=== PATIENT | female | born 2005 | race Caucasian/White ===

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

== ENCOUNTER 2025-08-04 19:04 | Emergency (ER) | payer BC, SELFPAY ==
[2025-08-04 19:06] VITALS: BP 127/89
[2025-08-04 22:18] VITALS: BMI 33.4
[2025-08-04 22:31] VITALS: BP 109/70
[2025-08-04 22:42] LABS: Hematocrit 38.9 % (37.0-47.0); Hemoglobin 13.4 g/dL (12.0-16.0); Mean Corp Hgb Conc. 34.4 g/dL (33.0-37.0); Mean Corpuscular Volume 80.7 fL (81.0-99.0); Nucleated Red Blood Cells % 0 %; Platelet Count 334 10^3/uL (130-400); Red Cell Dist. Width 12.6 % (11.5-14.5)
[2025-08-04] MEDS: BENADRYL 25 MG IV (22:50)
[2025-08-04] MEDS: DECADRON 10 MG IV (22:50)
[2025-08-04] MEDS: REGLAN 10 MG IV (22:50)
[2025-08-04] MEDS: TORADOL 15 MG IV (22:50)
[2025-08-04] MEDS: NSS 1000 IV (22:53)
[2025-08-04 22:54] LABS: HCG, Serum Qualitative Screen Negative
[2025-08-04 22:58] LABS: ALT (SGPT) 13 U/L (0-35); AST (SGOT) 19 U/L (14-36); Albumin 4.6 g/dl (3.5-5.0); Alkaline Phosphatase 72 U/L (38-126); Blood Urea Nitrogen 13 mg/dl (7-17); Calcium 9.6 mg/dl (8.4-10.2); Carbon Dioxide 26 mmol/L (22-30); Chloride 106 mmol/L (98-107); Estimated Creatinine Clearance > 125 ml/min; Glucose 96 mg/dl (70-99); Potassium 4.0 mmol/L (3.5-5.1); Sodium 140 mmol/L (135-145); Total Protein 7.9 g/dl (6.3-8.2); eGFR > 60.00
[2025-08-04 23:08] VITALS: BP 123/78
--- NOTE | 2025-08-04 23:57 | ED.GENMED ---
History of Present Illness
General
Chief Complaint: Headache
Source: patient and significant other
Exam Limitations: none
Time Seen by Provider: 08/04/25 22:08
Nursing documentation reviewed up to this point in time: agreed with
History of Present Illness
History of Present Illness:
Note:
CHIEF COMPLAINT(S)
Severe headache described as a migraine with associated nausea, eye pain, numbness in arms and face, and occasional dizziness.
HISTORY OF PRESENT ILLNESS
The patient is a 19-year-old female who presents with a severe headache that she describes as a migraine. The headache initially worsened but has improved slightly. She reports feeling very nauseous and experiencing significant pain in her eyes. The
patient also experienced numbness in her arms and face, which has since resolved. She expresses ongoing distress due to the migraines severity.
The patient states that she did not have migraines until last year when they began occurring during the winter. Although the frequency decreased around September, she had several intense episodes, which she initially suspected might be related to a
medication she was taking. She describes a common prodrome with visual disturbances, including blurry vision and spotting in her eyes, preceding the pain.
Today, the headache onset was around 5:45 PM. The patient took Tylenol immediately, and her symptoms improved, leading her to seek medical care due to extreme dizziness and feeling 'out of body.'
CHRONIC MEDICAL CONDITIONS SIGNIFICANTLY AFFECTING CARE
Migraine headaches, suspected association with past medication.
REVIEW OF SYSTEMS
- Head: Reports severe headache with an accompanying sensation of pressure.
- Eyes: Pain and blurring vision preceding headache onset.
- Neurology: Describes dizziness and transient numbness in arms and face, which has resolved.
- Gastrointestinal: Reports significant nausea.
PHYSICAL EXAM
General: Alert, no acute distress.
Skin: Warm, dry.
Head: Normocephalic, atraumatic.
Neck: Supple, trachea midline.
Eye, Ears, Nose, Mouth, and Throat: Oral mucosa moist.
Cardiovascular: Normal peripheral perfusion, no edema.
Respiratory: Respirations are non-labored.
Gastrointestinal: Abdomen nondistended.
Back: Normal range of motion, normal alignment.
Musculoskeletal: Normal range of motion, normal strength.
Neurological: Alert and oriented to person, place, time, and situation, no focal neurological deficit observed.
Psychiatric: Cooperative, appropriate mood & affect.
PROBLEM LIST
Acute: Migraine headache with nausea, visual disturbances, and transient neurological symptoms.
PLAN
- Administer intravenous fluids for hydration.
- Administer medication cocktail including diphenhydramine, toradol, decadron, and reglan for management of migraine symptoms.
- Monitor the patient�s response to treatment.
- Discharge options: The patient may choose to leave once the fluid administration is complete or stay for observation depending on symptom resolution and personal preference.
- Advise patient to rest, either at home or in the facility, due to the sedative effects of the medication.
DIFFERENTIAL DIAGNOSIS
The differential diagnosis includes, in no particular order and is not limited to:
1. Migraine
2. Tension-type headache
3. Cluster headache
4. Medication overuse headache
5. Cervicogenic headache
6. Sinusitis
7. Intracranial hypertension
8. Dehydration headache
9. Ocular strain
10. Infection-related headache (e.g., viral or bacterial)
Disposition:
SUMMARY OF ENCOUNTER
The patient, a 19-year-old female, presented to the emergency department with a severe migraine headache, accompanied by symptoms including nausea, eye pain, and visual disturbances. She had taken acetaminophen (Tylenol) at home with some
improvement in her symptoms. The patient has a history of migraines, which she reported as more severe in past episodes. In the emergency department, she was evaluated, and her symptoms mostly resolved following treatment.
DISPOSITION
The patient was discharged with a plan to follow up with her primary care provider.
ASSESSMENT
Acute migraine headache with associated symptoms of nausea and visual disturbances.
EMERGENCY TREATMENTS ADMINISTERED
The patient received acetaminophen (Tylenol) at home for pain relief before presentation.
PLAN
The patient is advised to continue care under her primary care provider and to manage migraine symptoms using prescribed medications as directed by her healthcare provider.
MEDICAL DECISION MAKING
-Complexity of Data Reviewed:
Chronic conditions affecting care: Migraine headaches.
DIAGNOSIS
Migraine, unspecified, G43.909.
Past History
Past History
ED Past Medical History: Asthma, Psychiatric (Anxiety) and Other (Plaque psoriasis, Migraines, )
ED Past Surgical History: None
Social History
Tobacco: Non-smoker
Alcohol: None
Drug: None
Personal: Single
Living: with roommate ([employer])
Employment: Student
Phy Exam
Physical Exam
Physical Exam:
.
Course
Orders/Labs/Results
Orders:
Orders
08/04/25 22:31
Complete Blood Count/With Diff Urgent
Comprehensive Metabolic Panel Urgent
HCG, Serum Qualitative Screen Urgent
Comment: ADD ON
08/04/25 22:43
Add On- LAB Urgent
Tests Added?: HCG, qual
0.9% Sodium Chloride 1000 ml [Nss] 1,000 ml IV BOLUS
Dexamethasone Sod Phosphate [Decadron] 10 mg IV NOW STA
Ketorolac [Toradol] 15 mg IV NOW STA
Metoclopramide [Reglan] 10 mg IV NOW STA
08/04/25 22:45
Diphenhydramine [Benadryl] 25 mg IV NOW STA
Abnormal Lab Results
08/04/25
22:31
MCV 80.7 L fL
(81.0-99.0)
08/04/25 22:31
08/04/25 22:31
Vital Signs
Initial and Last Documented VS:
Initial Vital Signs
Temp Pulse Resp BP Pulse Ox
97.8 F 90 16 127/89 98
08/04/25 19:06 08/04/25 19:06 08/04/25 19:06 08/04/25 19:06 08/04/25 19:06
Last Documented Vital Signs
Temp Pulse Resp BP Pulse Ox
97.8 F 80 12 109/73 98
08/04/25 19:06 08/05/25 00:00 08/05/25 00:00 08/05/25 00:00 08/04/25 23:59
*Pulse Oximetry
SaO2: 98
Oxygen Mode of Delivery: Room air
Patient hypoxic: no
*Critical Care Note
Total Time (30-74mins, 75-104mins- exclusive of procedures): Not Applicable
ED Attending Note
-
Portions of this chart may have been created with voice recognition software.� Occasional wrong word or��sound alike� substitutions may have occurred due to the inherent limitations of voice recognition software.
Discharge Plan
Departure
Patient Disposition: Home (Routine Discharge)
Date of Disposition: 08/04/25
Time of Disposition: 23:58
Patient with high blood pressure during this ER visit?: Yes
Discharge Problem:
Headache, migraine
Instructions: Migraines (DC), Headache, Adult (DC), BLOOD PRESSURE
Prescriptions:
No Action
venlafaxine 75 mg Tablet
75 mg PO DAILY
Tremfya 100 mg/mL Auto-Injector
100 mg SC Q8W
buspirone [BuSpar] 5 mg Tablet
5 mg PO Q6 PRN (Reason: anxiety)
Rx Instructions:
per pt she is allowed to take up to 15mg at a time
levothyroxine 50 mcg Tablet
50 mcg PO DAILY
Nurtec ODT 75 mg Tablet,Disintegrating
75 mg PO Q48H
Referrals:
Maryanne Babb MD [Non-Admitting Privileges, Neurology] - As needed
Activity Restrictions/Additional Instructions:
d.]
Thank You for choosing [facility].
It was a pleasure meeting you and taking part in your care. We hope for your continued healing and wellness.
Please read discharge instructions in their entirety. However, they are for general education and may not describe your exact diagnosis at discharge. Information on your ER visit and medical conditions were discussed with you along with appropriate
follow up information...
If indicated, please take your medications as instructed and indicated on discharge paperwork.
Please schedule a follow up appointment as directed. Call to schedule an appointment
Please return to the emergency department with ANY change in, persisting, or worsening of symptoms. If any of your symptoms do not improve, or persist, or become more severe within 6-12 hours, please return to the emergency department for further
care.
Please return to the emergency department if you develop a headache, neck pain/stiffness, fever greater than 100.4F, chest pain, shortness of breath, persistent nausea, vomiting, slurred speech, difficulty walking, numbness/tingling, weakness, signs
of infection or any other symptoms that are worrisome to you.
If you have any questions or concerns please do not hesitate to call the Hospital at .
Interventions
Interventions:
*Risk Screen - Suicide Last Done: 08/04/25 19:07
*General Assessment Last Done: 08/04/25 22:16
*Neglect/Abuse Screening Last Done: 08/04/25 19:07
*ED- Fall Risk Assessment Last Done: 08/04/25 22:16
*ED COVID-19 Vaccine History Last Done: 08/04/25 22:16
*ED Influenza Vaccine History Last Done: 08/04/25 22:16
*Nursing Disposition Last Done: 08/05/25 00:26
ED- Neurological Assessment Last Done: 08/04/25 22:27
Discharge Date and Time
Discharge Date/Time: 08/05/25 00:26
Print Language: MACANESE
[2025-08-05] VITALS: BP 109/73
== END 2025-08-05 00:26 | disposition home or self-care (01) ==
LOC: EMR 19:04
PROVIDERS: EMERGENCY PHYSICIAN Student in an Organized Health Care Education/Training Program
DX: G43.909 Migraine, unspecified, not intractable, without status migrainosus (principal); J45.909 Unspecified asthma, uncomplicated
CPT/HCPCS: 96374; 96375; 96361; 99284; 80053; 84703; 85025

== ENCOUNTER 2025-08-10 13:02 | Emergency (ER) | payer BC, SELFPAY ==
[2025-08-10 13:07] VITALS: BP 134/94
--- NOTE | 2025-08-10 14:03 | ED.GENMED ---
History of Present Illness
<EDNA Montes Last Filed: 08/10/25 16:49>
General
Chief Complaint: Visual Problem
Source: patient
Exam Limitations: none
Time Seen by Provider: 08/10/25 13:42
History of Present Illness
History of Present Illness:
19-year-old female presents complaining of persistent visual disturbance. She was here 6 days ago for migraine with visual disturbance. She was given a cocktail at that time and her headache went away however visual disturbance did not. She
describes loss of peripheral vision out of both eyes. No double vision. No unilateral numbness or weakness. No fevers rashes or ongoing headache. She denies any neck pain. She tried ibuprofen through her family doctor and family doctor also
prescribed prednisone and she notes no improvement of her symptoms. No other complaints at this time
Past History
<EDNA Montes Last Filed: 08/10/25 16:49>
Past History
ED Past Medical History: Asthma, Psychiatric (Anxiety) and Other (Plaque psoriasis, Migraines, )
ED Past Surgical History: None
Social History
Tobacco: Non-smoker
Alcohol: None
Drug: None
Personal: Single
Living: with roommate ([employer])
Employment: Student
Phy Exam
<EDNA Montes Last Filed: 08/10/25 16:49>
Physical Exam
Physical Exam:
General: Well-appearing female no acute respiratory distress
HEENT: Normal cephalic pupils equal round reactive to light TMs normal extract motion intact
Heart: Regular rate and rhythm
Lungs: Clear no wheeze
Neurologic exam: Alert and oriented x 3 no facial asymmetry finger-nose intact. No obvious visual field deficit. [id number] intact. No dysarthria or aphasia.
Skin is warm no rash
Course
<EDNA Montes Filed: 08/10/25 16:49>
Orders/Labs/Results
Orders:
Orders
08/10/25 14:00
CT Head W/o Iv Contrast Urgent
Comment:
Reason For Exam: visual disturbance
Test Result ONCE
08/10/25 14:10
Complete Blood Count/With Diff Urgent
Comprehensive Metabolic Panel Urgent
HCG, Serum Qualitative Screen Urgent
TSH Reflex To Free T4 Urgent
08/10/25 18:02
MR Brain W/o & With Contrast Urgent
Comment:
Reason For Exam: peripheral vision loss
Recent pill cam endoscopy?: No
08/10/25 18:05
Lorazepam [Ativan] 0.5 mg PO ONCE PRN PRN
08/10/25 18:12
Admit/Transfer Patient As Directed
Co-Sign Provider:
Level of Care: Observation services
Assign to:: Telemetry
Physician / Group: Tania Rose
Diagnosis: peripheral vision loss
Reason for Telemetry: CVA/TIA
Date to Stop Telemetry: 08/13/25
Time to Stop Telemetry: 11:00
Reason for Hospitalization: peripheral vision loss
Code Status As Directed
Resuscitation Status: Full Code
PRN Pain Medication Management As Directed
May give lesser potent ordered pain med per pt: Yes
preference::
Protocol:: Medication orders for pain may be administered in a
manner that supports deferring to patient preference
when the pt is:
- Requesting an ordered lesser potent pain medication.
Least to most potent pain medications are defined
as: acetaminophen < NSAID < tramadol < opioids
(morphine, oxycodone, hydromorphone).
- Requesting a lesser dose of the same medication IF
ORDERED.
- Requesting a less intrusive route of administration
if both routes are prescribed by the provider (PO <
IV).
08/10/25 18:[address] Non Medication Order As Directed
Physician Order: please update overnight provider when results of MRI are back, thank you!
08/13/25 11:00
DC Protocol for Telemetry ONCE
Abnormal Lab Results
08/10/25
14:10
MPV 10.5 H fL
(7.4-10.4)
Glucose 111 H mg/dl
(70-99)
08/10/25 14:10
08/10/25 14:10
Vital Signs
Initial and Last Documented VS:
Initial Vital Signs
Temp Pulse Resp BP Pulse Ox
36.8 C 100 18 134/94 99
08/10/25 13:07 08/10/25 13:07 08/10/25 13:07 08/10/25 13:07 08/10/25 13:07
Last Documented Vital Signs
Temp Pulse Resp BP Pulse Ox
36.8 C 78 18 112/72 98
08/10/25 13:07 08/10/25 21:07 08/10/25 21:07 08/10/25 21:04 08/10/25 21:05
<Jesus Manuel Jacobo, DO - Last Filed: 08/10/25 21:35>
Orders/Labs/Results
Orders:
Orders
08/10/25 14:00
CT Head W/o Iv Contrast Urgent
Comment:
Reason For Exam: visual disturbance
Test Result ONCE
08/10/25 14:10
Complete Blood Count/With Diff Urgent
Comprehensive Metabolic Panel Urgent
HCG, Serum Qualitative Screen Urgent
TSH Reflex To Free T4 Urgent
08/10/25 18:02
MR Brain W/o & With Contrast Urgent
Comment:
Reason For Exam: peripheral vision loss
Recent pill cam endoscopy?: No
08/10/25 18:05
Lorazepam [Ativan] 0.5 mg PO ONCE PRN PRN
08/10/25 18:12
Admit/Transfer Patient As Directed
Co-Sign Provider:
Level of Care: Observation services
Assign to:: Telemetry
Physician / Group: Tania Rose
Diagnosis: peripheral vision loss
Reason for Telemetry: CVA/TIA
Date to Stop Telemetry: 08/13/25
Time to Stop Telemetry: 11:00
Reason for Hospitalization: peripheral vision loss
Code Status As Directed
Resuscitation Status: Full Code
PRN Pain Medication Management As Directed
May give lesser potent ordered pain med per pt: Yes
preference::
Protocol:: Medication orders for pain may be administered in a
manner that supports deferring to patient preference
when the pt is:
- Requesting an ordered lesser potent pain medication.
Least to most potent pain medications are defined
as: acetaminophen < NSAID < tramadol < opioids
(morphine, oxycodone, hydromorphone).
- Requesting a lesser dose of the same medication IF
ORDERED.
- Requesting a less intrusive route of administration
if both routes are prescribed by the provider (PO <
IV).
08/10/25 18:[address] Non Medication Order As Directed
Physician Order: please update overnight provider when results of MRI are back, thank you!
08/13/25 11:00
DC Protocol for Telemetry ONCE
Abnormal Lab Results
08/10/25
14:10
MPV 10.5 H fL
(7.4-10.4)
Glucose 111 H mg/dl
(70-99)
08/10/25 14:10
08/10/25 14:10
Vital Signs
Initial and Last Documented VS:
Initial Vital Signs
Temp Pulse Resp BP Pulse Ox
36.8 C 100 18 134/94 99
08/10/25 13:07 08/10/25 13:07 08/10/25 13:07 08/10/25 13:07 08/10/25 13:07
Last Documented Vital Signs
Temp Pulse Resp BP Pulse Ox
36.8 C 78 18 112/72 98
08/10/25 13:07 08/10/25 21:07 08/10/25 21:07 08/10/25 21:04 08/10/25 21:05
<Carson Pratt PA-C - Last Filed: 08/10/25 16:49>
MDM/Problems Addressed
Differential Diagnosis Includes:
Patient with visual disturbance of which she notes as a loss of peripheral vision. No obvious deficit on exam. Given she has persistence of symptoms, CT of the head ordered. Check labs.
<Carson Pratt PA-C - Last Filed: 08/10/25 16:49>
*Pulse Oximetry
SaO2: 99
Oxygen Mode of Delivery: Room air
Patient hypoxic: no
*Critical Care Note
Total Time (30-74mins, 75-104mins- exclusive of procedures): Not Applicable
<Carson Pratt PA-C - Last Filed: 08/10/25 16:49>
Update Note
Update Note:
Labs reviewed without significant finding. CT of the head shows no acute finding. Discussed findings with emergency room attending as well as neurology. Neurology recommended obtaining an MRI secondary to persistent visual loss. I was unable to
get an MRI done through the emergency room. Will admit to hospital for further evaluation
ED Attending Note
<Carson Pratt PA-C - Last Filed: 08/10/25 16:49>
-
Portions of this chart may have been created with voice recognition software.� Occasional wrong word or��sound alike� substitutions may have occurred due to the inherent limitations of voice recognition software.
<Jesus Manuel Jacobo, - Last Filed: 08/10/25 21:35>
ED Attending Note
Patient seen and examined by attending physician: Yes
I performed the substantive portion of visit, reviewed & personally made and approve the management plan that is documented in note by myself or RILEY.: Yes
ED Attending Note:
I evaluated the patient at bedside. She does have some blurred vision as opposed to true field cuts/vision loss to the bitemporal regions. She appears comfortable. MRI brain was negative. I communicated with neurology who recommends
ophthalmology follow-up and I also notified ophthalmology, Dr. Newman who will see in follow-up.
Discharge Plan
Departure
Patient Disposition: Home (Routine Discharge)
Date of Disposition: 08/10/25
Time of Disposition: 21:24
Patient with high blood pressure during this ER visit?: Yes
Discharge Problem:
Peripheral vision loss
Prescriptions:
No Action
buspirone [BuSpar] 10 mg Tablet
10 mg PO BID
ibuprofen [Advil] 200 mg Tablet
400 mg PO DAILYPRN PRN (Reason: mild pain)
Referrals:
Maryanne Babb MD [Non-Admitting Privileges, Neurology]
Mick Fritz MD [Active, Ophthalmology]
Waqar Newman MD [Active, Ophthalmology]
Simon Tang MD [Active, Neurology]
Activity Restrictions/Additional Instructions:
We have been discussing your case with a neurologist, Dr. Selby. I am giving you the contact information for two different neurologists (Dr. Tang; Dr. Babb) -please try to call one of them to help arrange close outpatient follow-up. I am also
giving the contact information for admission specialist as the on-call neurologist recommends that you see an admission specialist as well (Dr. Newman; Dr. Fritz).
Interventions
Interventions:
*Risk Screen - Suicide Last Done: 08/10/25 13:07
*General Assessment Last Done: 08/10/25 13:07
*Neglect/Abuse Screening Last Done: 08/10/25 13:07
*ED- Fall Risk Assessment Last Done: 08/10/25 14:33
*ED COVID-19 Vaccine History Last Done: 08/10/25 14:33
*ED Influenza Vaccine History Last Done: 08/10/25 14:33
ED- Neurological Assessment Last Done: 08/10/25 14:30
ED-EENT Assessment Last Done: 08/10/25 14:30
ED Swallowing Screen Last Done: 08/10/25 14:30
Discharge Date and Time
Print Language: FRISIAN
[2025-08-10 14:22] LABS: Hematocrit 41.4 % (37.0-47.0); Hemoglobin 14.4 g/dL (12.0-16.0); Mean Corp Hgb Conc. 34.8 g/dL (33.0-37.0); Mean Corpuscular Volume 83.6 fL (81.0-99.0); Nucleated Red Blood Cells % 0 %; Platelet Count 343 10^3/uL (130-400); Red Cell Dist. Width 12.7 % (11.5-14.5)
[2025-08-10 14:48] LABS: HCG, Serum Qualitative Screen Negative
[2025-08-10 15:17] LABS: ALT (SGPT) 12 U/L (0-35); AST (SGOT) 15 U/L (14-36); Albumin 4.2 g/dl (3.5-5.0); Alkaline Phosphatase 64 U/L (38-126); Blood Urea Nitrogen 10 mg/dl (7-17); Calcium 9.5 mg/dl (8.4-10.2); Carbon Dioxide 26 mmol/L (22-30); Chloride 105 mmol/L (98-107); Glucose 111 mg/dl (70-99); Potassium 3.9 mmol/L (3.5-5.1); Sodium 136 mmol/L (135-145); Total Protein 7.3 g/dl (6.3-8.2); eGFR > 60.00
--- NOTE | 2025-08-10 16:51 | HPS.HSE ---
Family Physician
-
Family Physician: * NONE
Chief Complaint
-
peripheral vision loss
History of Present Illness
Ms. Sherine Will is a 19 yo woman with hx asthma, anxiety, migraines, recent ER vision 6 days ago for migraine with visual disturbance with resolution of headache presents with persistent peripheral vision loss.
Patient states that typically her migraine starts with a vision aura then progresses to feeling of tunnelled vision which has persisted over past 6 days. She reports she can see peripherally but it isn't clear. She had some nausea and decreased
appetite after migraine for several days that has resolved.
No fevers/chills. No chest pain or shortness of breath. No abdominal pain. No weakness or numbness in arms or legs. No difficulty speaking or swallowing. Normal gait.
Medical History
Past Medical History
Past Medical History: Reports Other (asthma, anxiety, migraines)
Past Surgical History: Reports Other
Social History
Tobacco: Non-smoker
Alcohol: None
Family History
Family History: Not pertinent
Allergies / Home Medications
Allergies reflects when Allergies were last updated in [facility].
Home Medications with original date entered in [facility]
Allergy/Medication List:
Allergies
Allergy/AdvReac Type Severity Reaction Status Date / Time
cefdinir Allergy Vomiting Verified 08/10/25 13:07
shellfish derived Allergy Unknown Verified 08/10/25 13:07
Home Medications
buspirone 10 mg tablet 10 mg PO BID Mental Health/Anxiety 08/10/25
ibuprofen 200 mg tablet (Advil) 400 mg PO DAILYPRN PRN mild pain 08/10/25
Review of Systems
-
History Source: Patient
A 12 point ROS was completed and negative except as noted: Yes
Physical Exam
Vital Signs
Vital Signs
Temp Pulse Resp BP Pulse Ox
98.3 F 100 18 134/94 99
08/10/25 13:07 08/10/25 13:07 08/10/25 13:07 08/10/25 13:07 08/10/25 14:06
Physical Exam
General: No Apparent Distress
HEENT: PERRLA
Respiratory: Clear; No Wheezes
Cardiac: S1/S2 and Regular Rhythm
GI: Soft and Non Tender
Skin: Warm and Dry; No Rash
Neuro: AO x 3 and Other (WESLEY, EOMI, no obvious peripheral vision deficit on exam although reports fingers are blurry, no facial asymmetry, normal speech, no pronator drift, 5/5 strength upper and lower extremities )
Psych: Calm
Laboratory Results
-
08/10/25 14:10
08/10/25 14:10
Laboratory Results
Total Bilirubin 0.4 mg/dl (0.2-1.3) 08/10/25 14:10
AST 15 U/L (14-36) 08/10/25 14:10
ALT 12 U/L (0-35) 08/10/25 14:10
Alkaline Phosphatase 64 U/L (38-126) 08/10/25 14:10
Data Reviewed
-
Diagnostic Radiology: Report Reviewed by me
Lab Data: Labs Reviewed by me
Impression/Plan
-
Ms. Sherine Will is a 19 yo woman with hx asthma, anxiety, migraines, recent ER vision 6 days ago for migraine with visual disturbance with resolution of headache presents with persistent peripheral vision loss.
Triage VS: T 98.4, P 100, RR 18, BP 134/94, SpO2 99%
LABS: WBC 8.9, Hg 14.4, PLT 343, Na 136, K+ 3.9, CO2 26, Cr 0.6, Glucose 111, liver enzymes WNL, TSH 1.10, HCG negative
HEAD CT
IMPRESSION:
No acute intracranial abnormality.
Peripheral Vision Loss
History of Migraines
-admit to observation, telemetry
-MRI with and without contrast
-Neurology consult, aware of admission
-neuro checks q 4 hours
-PRN ativan prior to MRI
Hx Anxiety
-[employer] Buspar
DVT PPx SCD
FULL CODE
[2025-08-10] MEDS: ATIVAN 0.5 MG PO (18:38)
[2025-08-10 21:04] VITALS: BP 112/72
== END 2025-08-10 22:00 | disposition home or self-care (01) ==
LOC: EMR 13:02
PROVIDERS: Physician Assistant; EMERGENCY PHYSICIAN Emergency Medicine
DX: H54.7 Unspecified visual loss (principal); J45.909 Unspecified asthma, uncomplicated; F41.9 Anxiety disorder, unspecified; L40.0 Psoriasis vulgaris; Z79.899 Other long term (current) drug therapy; Z88.1 Allergy status to other antibiotic agents; Z91.013 Allergy to seafood
CPT/HCPCS: 99284; 70450; 70553; 80053; 84443; 84703; 85025; A9575